=== PATIENT | female | born 1980 | race African-American/Black ===

== ENCOUNTER 2016-09-23 01:48 | Emergency (ER) | payer OTHER ==
[~2016-09-23 01:48] MED LIST: ALBUTEROL17 GM INH; ALBUTEROL17 GM NEB; ALBUTEROL20 ml INH; ALPRAZOLAM PO; AMOXICILLIN500 M1 PO; BACTRIM DS TABL1 TA1 PO; BENTYL20 M1 PO; BENZONATATE PO; BROMFED DM COU118 ML PO; CELEXA PO; DICYCLOMINE HCL20 MG PO; FLAGYL PO; FLEXERIL PO; FLEXERIL10 MG PO; IBUPROFEN PO; LEVAQUIN750 MG PO; LODINE PO; MEDROL4 MG/DOSE- PO; MONODOX100 MG PO; NAPROXEN500 M1 PO; NO MEDICATIONS; PHENERGAN DM1 ML PO; PHENERGAN25 M1 DOB; PHENTERMINE; PREDNISONE PO; PROMETHAZINE D118 ML PO; PROTONIX PO; PYRIDIUM PO; SKELAXIN PO; TYLENOL #3 PO; ULTRAM PO; VICODIN 5/1 TAB 5/50 PO; VOLTAREN75 MG PO; XANAX0.5 MG PO; ZITHROMAX PO; ZOFRAN ODT4 MG PO; ZOFRAN ODT4 MG/UDTAB PO
== END 2016-09-23 02:58 | disposition home or self-care (01) ==
LOC: SED 01:48
DX: K59.00 Constipation, unspecified (principal); J45.909 Unspecified asthma, uncomplicated; F41.9 Anxiety disorder, unspecified; F17.200 Nicotine dependence, unspecified, uncomplicated
CPT/HCPCS: 99283